=== PATIENT | male | born 1970 | race Two or more races ===

== ENCOUNTER 2025-08-05 09:15 | Outpatient (CLI) | payer OTHER ==
--- NOTE | 2025-08-05 10:37 | DVH ---
Procedure: CT CHEST WITHOUT CONTRAST Reason for study/Clinical History: SCREENING FOR LUNG CANCER Comparison Study: None TECHNIQUE: Multidetector CT of the chest was performed from the lung apices to the upper abdomen with out the use of intravenous contract. Axial, coronal and sagittal multiplanar reformats were performed . Radiation Dose Information: CT Dose: CTDI volume is 7.01 mGy. Dose-length product is 293.95 mGy*cm The dose indicators for CT are the volume Computed Tomography (CT) Dose Index (CTDIvol) and the Dose Length Product (DLP), and are measured in units of mGy and mGy-cm, respectively. These indicators are not patient dose, but values generated from the CT scanner acquisition factors. The report includes radiation exposure data for exposures received during this examination. FINDINGS: Lower neck: Unremarkable. Lungs: No focal consolidation. Mild biapical scarring. 0.8 cm nodule in the left lower lobe image 31 1.3 cm nodule in the left lower lobe image 23 0.9 cm nodule in the left lower lobe image 37 0.6 cm nodule in the left lower lobe image 37 0.4 cm nodule in the left lower lobe image 40 0.4 cm nodule in the left lower lobe image 49 0.4 cm nodule in the left lower lobe image 42 0.6 cm nodule in the right lower lobe image 56 0.4 cm nodule in the left lower lobe image 47 Heart/Vascular Structures: Vascular calcifications of the aorta. Coronary artery calcifications. Lymph Nodes: No adenopathy Pleura: No pleural effusion or significant pneumothorax. Musculoskeletal: No acute osseous abnormality. Soft tissues: Normal. Upper abdomen: Limited portions of the upper abdomen are unremarkable. IMPRESSION: Multiple bilateral pulmonary nodules, as described above. Lung-RADS Category 4A: 3-month follow-up with LDCT PET-CT may be used if there is a 8 mm solid component Radiation optimization: All CT scans at this facility use at least one of these dose optimization joan hniques: automated exposure control mA and/or kV adjustment per patient size (includes targeted exam s where dose is matched to clinical indication) or iterative reconstruction.
== END 2025-08-05 17:00 | disposition home or self-care (01) ==
LOC: CT 09:15
DX: R91.8 Other nonspecific abnormal finding of lung field (principal); Z12.2 Encounter for screening for malignant neoplasm of respiratory organs; J98.4 Other disorders of lung; I70.0 Atherosclerosis of aorta; I25.10 Atherosclerotic heart disease of native coronary artery without angina pectoris
CPT/HCPCS: 71250